=== PATIENT | female | born 1995 | race Caucasian/White ===

== ENCOUNTER 2017-01-12 16:11 | Emergency (ER) | payer OTHER ==
[~2017-01-12] VITALS: Ht 160 cm; Wt 46.0 kg
[2017-01-12 16:14] VITALS: BP 119/57; PULSE 75; RESP 15; TEMP 98.3; O2SAT 99
--- NOTE | 2017-01-12 16:23 | PD ---
Physical Exam Date Seen by Provider: January 12, 2017 Time Seen by Provider: 16:21 Narrative Pt presents with N/V/D since yesterday. She reports feeling hot and chilled. Boyfriend has been sick with similar symptoms, his resolved on their own. LMP . VSS, awaiting bed placement. Data Data Last Documented VS Vital Signs Date Time Temp Pulse Resp B/P Pulse Ox O2 Delivery O2 Flow Rate FiO2 01/12/17 16:14 98.3 75 15 119/57 99 MDM Supervised Visit with GERALDO: Dottie Rincon January 12, 2017 16:23
[2017-01-12] MEDS ORDERED: SODIUM CHLOR 0.9% 1000 ML INJ 1,000 ML IV SCH (18:11)
[2017-01-12] MEDS ORDERED: SODIUM CHLOR 0.9% 1000 ML INJ 1,000 ML IV ONE (18:15)
[2017-01-12] MEDS ORDERED: LIDOCAINE VISCOUS 2% SOLN 15 ML UDC PO ONE (18:15)
[2017-01-12] MEDS ORDERED: ALUMINUM/MAGNESIUM/SIMETH 30 ML CUP PO ONE (18:15)
[2017-01-12] MEDS ORDERED: SODIUM CHLORIDE 0.9% FLUSH 10 ML FLUSH IV FLUSH PRN (18:15)
[2017-01-12] MEDS ORDERED: ONDANSETRON HCL 4 MG/2 ML VIAL IVP ONE (18:15)
[2017-01-12 18:23] VITALS: BP 118/74; PULSE 93; RESP 18; O2SAT 98
[2017-01-12] MEDS ORDERED: ZOFR4TAB3 SL (18:23)
--- NOTE | 2017-01-12 18:24 | PD ---
HPI Chief Complaint: GI Complaint Time Seen by Provider: 17:58 Travel History International Travel<30 days: No Contact w/Intl Traveler<30days: No Traveled to known affect area: No History of Present Illness HPI 21-year-old female arrives to the ER complaining of nausea and vomiting for about 18 hours. She describes epigastric abdominal pain worse with palpation. Any oral intake tends to precipitate vomiting. She notes dark urine. She reports xerostomia as well. Her significant other had similar symptoms a few days ago. No dysuria vaginal bleeding or vaginal discharge. Location gastrointestinal. Severity moderate. LMP about 1 week prior. PFSH Past Medical History Medical History: Denies Significant Hx ?: Not LMP: 01/06/17 Social History Tobacco Use: Yes Allergies-Medications (Allergen,Severity, Reaction): Coded Allergies: Seafood (Verified Allergy, Severe, HIVES, 01/12/17) Shellfish (Verified Allergy, Severe, VOMITING, 01/12/17) Reported Meds & Prescriptions Reported Meds & Active Scripts Active Zofran Odt (Ondansetron Odt) 4 Mg Tab 4 Mg SL Q8HR PRN Review of Systems Except as stated in HPI: all other systems reviewed are Neg General / Constitutional: Positive: Fever (somewhat equivocal on questioning) Physical Exam Narrative GENERAL: 21-year-old female well-nourished well-developed pleasant SKIN: Focused skin assessment warm/dry. HEAD: Atraumatic. Normocephalic. EYES: Pupils equal and round. No scleral icterus. No injection or drainage. ENT: No nasal bleeding or discharge. Mucous membranes pink and moist. NECK: Trachea midline. No JVD. CARDIOVASCULAR: Regular rate and rhythm. No murmur appreciated. RESPIRATORY: No accessory muscle use. Clear to auscultation. Breath sounds equal bilaterally. GASTROINTESTINAL: Minimal tenderness to palpation in the epigastrium. Soft. MUSCULOSKELETAL: No obvious deformities. No clubbing. No cyanosis. No edema. NEUROLOGICAL: Awake and alert. No obvious cranial nerve deficits. Motor grossly within normal limits. Normal speech. PSYCHIATRIC: Appropriate mood and affect; insight and judgment normal. Data Data Last Documented VS Vital Signs Date Time Temp Pulse Resp B/P Pulse Ox O2 Delivery O2 Flow Rate FiO2 01/12/17 18:23 93 18 118/74 98 Room Air 01/12/17 16:14 98.3 Vital signs reviewed Orders Complete Blood Count With Diff (01/12/17 18:11) Comprehensive Metabolic Panel (01/12/17 18:11) Lipase (01/12/17 18:11) Urinalysis - C+S If Indicated (01/12/17 18:11) Iv Access Insert/Monitor (01/12/17 18:11) Ecg Monitoring (01/12/17 18:11) Oximetry (01/12/17 18:11) Ondansetron Inj (Zofran Inj) (01/12/17 18:15) Sodium Chlor 0.9% 1000 Ml Inj (Ns 1000 M (01/12/17 18:11) Sodium Chloride 0.9% Flush (Ns Flush) (01/12/17 18:15) Al-Mag Hy-Si 40-40-4 Mg/Ml Liq (Mag-Al P (01/12/17 18:15) Lidocaine 2% Viscous (Xylocaine 2% Visco (01/12/17 18:15) Ed Urine Pregnancytest Poc (01/12/17 18:11) Sodium Chlor 0.9% 1000 Ml Inj (Ns 1000 M (01/12/17 18:15) Labs Laboratory Tests Test 01/12/17 01/12/17 18:00 18:20 Urine Color YELLOW Urine Turbidity CLEAR Urine pH 7.0 Urine Specific [place] 1.031 Urine Protein 30 mg/dL Urine Glucose (UA) NEG mg/dL Urine Ketones 150 mg/dL Urine Occult Blood NEG Urine Nitrite NEG Urine Bilirubin NEG Urine Urobilinogen LESS THAN 2.0 MG/DL Urine Leukocyte Esterase TRACE Urine RBC LESS THAN 1 /hpf Urine WBC 2 /hpf Urine Squamous Epithelial 4 /hpf Cells Urine Bacteria RARE /hpf Urine Mucus FEW /lpf Microscopic Urinalysis Comment CULT NOT INDICATED White Blood Count 11.9 TH/MM3 Red Blood Count 5.36 MIL/MM3 Hemoglobin 15.3 GM/DL Hematocrit 46.9 % Mean Corpuscular Volume 87.5 FL Mean Corpuscular Hemoglobin 28.5 PG Mean Corpuscular Hemoglobin 32.6 % Concent Red Cell Distribution Width 14.4 % Platelet Count 227 TH/MM3 Mean Platelet Volume 9.4 FL Neutrophils (%) (Auto) 88.7 % Lymphocytes (%) (Auto) 4.8 % Monocytes (%) (Auto) 6.3 % Eosinophils (%) (Auto) 0.1 % Basophils (%) (Auto) 0.1 % Neutrophils # (Auto) 10.5 TH/MM3 Lymphocytes # (Auto) 0.6 TH/MM3 Monocytes # (Auto) 0.8 TH/MM3 Eosinophils # (Auto) 0.0 TH/MM3 Basophils # (Auto) 0.0 TH/MM3 CBC Comment DIFF FINAL Differential Comment Sodium Level 138 MEQ/L Potassium Level 3.8 MEQ/L Chloride Level 101 MEQ/L Carbon Dioxide Level 25.0 MEQ/L Anion Gap 12 MEQ/L Blood Urea Nitrogen 18 MG/DL Creatinine 1.02 MG/DL Estimat Glomerular Filtration 69 ML/MIN Rate Random Glucose 91 MG/DL Calcium Level 9.1 MG/DL Total Bilirubin 1.2 MG/DL Aspartate Amino Transf 19 U/L (AST/SGOT) Alanine Aminotransferase 25 U/L (ALT/SGPT) Alkaline Phosphatase 59 U/L Total Protein 7.9 GM/DL Albumin 4.0 GM/DL Lipase 114 U/L MDM Medical Decision Making Medical Screen Exam Complete: Yes Emergency Medical Condition: Yes Differential Diagnosis Constipation, Gastritis, Acute Cholecystitis, Biliary Colic, Pancreatitis, NORMAN , Hepatitis, Bowel Obstruction, Cystitis, Mesenteric Ischemia, AAA, Appendicitis , Renal Stone/Hydronephrosis, GERD, perforated viscous Narrative Course IV fluids along with Zofran given. Patient reports subjective improvement. As noted below blood work is reassuring. mild leukocytosis not unexpected following multiple episodes of vomiting. Improvement after the GI cocktail. This suggests a stomach etiology for epigastric pain. She also reports significant hunger upon reassessment at about 645PM. CBC & BMP Diagram 01/12/17 18:20 LFTs essentially normal Lipase normal UA normal Diagnosis Primary Impression: Nausea & vomiting Qualified Code: R11.2 - Non-intractable vomiting with nausea, unspecified vomiting type Additional Impression: Epigastric abdominal pain Referrals: Primary Care Physician as needed Additional Instructions: You have a choice when it comes to health care, and we are glad that you chose [facility]. Hopefully, we have met your expectations on today's visit. You are welcome to return to [facility] at any time, as we are committed to meeting the health care needs of our community. Med/Other Pt SpecificInfo: Prescription(s) given Scripts Ondansetron Odt (Zofran Odt)4 Mg Tab4 Mg SL Q8HR PRN (Nausea/Vomiting) #6 TAB Ref 0 Prov:Napoleon Das MD 01/12/17 Disposition: 01 DISCHARGE HOME Condition: Stable Napoleon Das MD January 12, 2017 18:24
[2017-01-12 18:40] LABS: AUTOMATED NEUTROPHIL # 10.5 TH/MM3 (1.8-7.7); BASOPHIL % 0.1 % (0.0-2.0); EOSINOPHIL % 0.1 % (0.0-4.0); HEMATOCRIT 46.9 % (35.0-46.0); HEMO FLAGS DIFF FINAL; LYMPH % 4.8 % (9.0-44.0); LYMPHOCYTE # 0.6 TH/MM3 (1.0-4.8); MEAN CELL VOLUME 87.5 FL (80.0-100.0); MEAN CORPUSCULAR HEMOGLOBIN 28.5 PG (27.0-34.0); MEAN CORPUSCULAR HGB CONC 32.6 % (32.0-36.0); MONO % 6.3 % (0.0-8.0); NEUT % 88.7 % (16.0-70.0); PLATELET COUNT 227 TH/MM3 (150-450); RED BLOOD COUNT 5.36 MIL/MM3 (4.00-5.30); RED CELL DISTRIBUTION WIDTH 14.4 % (11.6-17.2); WHITE BLOOD COUNT 11.9 TH/MM3 (4.0-11.0)
[2017-01-12 18:45] LABS: BACTERIA, URINE RARE /hpf; BLOOD, URINE NEG (NEG); COMMENT (UR) CULT NOT INDICATED; CULTURE IF INDICATED CULT NOT INDICATED; GLUCOSE,URINE NEG (NEG); KETONE, URINE 150 mg/dL (NEG); MUCUS URINE FEW /lpf (OCC); NITRITE,URINE NEG (NEG); SQUAMOUS EPITHELIAL CELL URINE 4 /hpf (0-5); URINE COLOR YELLOW (YELLW/STRAW)
[2017-01-12 18:55] LABS: ANION GAP 12 MEQ/L (5-15); AST (GOT) 19 U/L (16-38); BLOOD UREA NITROGEN 18 MG/DL (7-18); CHLORIDE 101 MEQ/L (98-107); GLOMERULAR FILTRATION RATE 69 ML/MIN (>89); POTASSIUM 3.8 MEQ/L (3.5-5.1); SODIUM (NA) 138 MEQ/L (136-145)
[2017-01-12 18:59] LABS: ALKALINE PHOSPHATASE 59 U/L (45-117); ALT (GPT) 25 U/L (9-42); TOTAL BILIRUBIN ADULT 1.2 MG/DL (0.2-1.0)
== END 2017-01-12 19:06 | disposition home or self-care (01) ==
LOC: NEPD 16:11
DX: R11.2 Nausea with vomiting, unspecified (principal); R10.13 Epigastric pain
CPT/HCPCS: 80053; 81001; 83690; 84703; 85025; 96374; 99284; J2405; J7030